=== PATIENT | male | born 1945 ===

== ENCOUNTER 2021-08-05 10:25 | Day surgery (SDC) | payer OTHER | END 2021-08-05 15:00 | disposition home or self-care (01) | LOC: AMB-ENDOS 10:25 | PROVIDERS: ATTEND Internal Medicine Gastroenterology | DX: K80.50 Calculus of bile duct without cholangitis or cholecystitis without obstruction (principal) ==

== ENCOUNTER 2021-12-23 09:14 | Day surgery (SDC) | payer OTHER ==
[~2021-12-23 09:14] MED LIST: COZAAR50 MG PO
== END 2021-12-23 16:20 | disposition home or self-care (01) ==
LOC: CIR.AMB 09:14 → AMB-ERCP 12:15 → CIR.AMB 12:15
PROVIDERS: ATTEND Internal Medicine Gastroenterology
DX: K80.50 Calculus of bile duct without cholangitis or cholecystitis without obstruction (principal); I10 Essential (primary) hypertension; Z87.891 Personal history of nicotine dependence; N40.0 Benign prostatic hyperplasia without lower urinary tract symptoms; G43.909 Migraine, unspecified, not intractable, without status migrainosus; K21.9 Gastro-esophageal reflux disease without esophagitis